=== PATIENT | female | born 1955 | race Hispanic/Latino ===

== ENCOUNTER → 2024-12-12 | Outpatient (CLI) | payer MEDICARE ==
[~2024-12-12] MED LIST: FEXO-402 PO; FLUT16H NS
--- NOTE | 2024-12-24 06:30 | HMCIMG ---
CLINICAL INDICATION: Unspecified menopausal perimenopausal disorder COMPARISON: None available TECHNIQUE: Bone densitometry is performed of the lumbar spine and left hip. FINDINGS: Total BMD of lumbar spine is 0.758 g/cm2 with a T-score of -2.6 and Z-score is -0.6. Total BMD of left hip is 0.88 7 g/cm2 with a T-score of -0.6 and Z-score is 0.8. FRAX SCORE: The 10 year fracture risk for a major osteoporotic fracture and hip fracture not reported due to T score at or below -2.5 IMPRESSION: 1. Osteoporosis of the lumbar spine 2. Normal left hip 3. I would recommend follow-up in 13 months World Health Organization criteria for BMD interpretation classify patients as Normal (T-score at or above -1.0), Osteopenic (T-score between -1.0 and -2.5), or Osteoporotic (T-score at or below -2.5). FRAX SCORE: A. All treatment decisions require clinical judgment and consideration of individual patient factors, including patient preferences, comorbidities, previous drug use, risk factors not captured in the FRAX model (e.g., frailty, falls, vitamin D deficiency, increased bone turnover, interval significant decline in bone density) and possible [id number]-estimation of fracture risk by FRAX. B. In addition, the NOF Guide recommends that FDA-approved medical therapies be considered in postmenopausal women and men age greater than or equal to 50 years with a: i. Hip or vertebral (clinical or morphometric) fracture. ii. T-score of less than or equal to -2.5 at the spine or hip. iii. Ten-year fracture probability by FRAX of greater than or equal to 3% for hip fracture of greater than or equal to 20% for major osteoporotic fracture.
== END | disposition home or self-care (01) ==
LOC: RAH 10:00
PROVIDERS: ATTEND Family Medicine
DX: M81.0 Age-related osteoporosis without current pathological fracture (principal); N95.9 Unspecified menopausal and perimenopausal disorder
CPT/HCPCS: 77080

== ENCOUNTER → 2024-12-25 | Emergency (ER) | payer MEDICARE ==
[~2024-12-25] VITALS: Ht 162.6 cm; Wt 68.5 kg
[2024-12-25 02:14] LABS: IMMATURE GRANULOCYTE ABSOLUTE 0.02 K/uL (0-1); NUCLEATED RED BLOOD CELLS 0.0 % (0.0-0.19); PLATELET COUNT (AUTO) 219 K/uL (130-400); RED BLOOD CELL COUNT(AUTO) 3.94 MIL/uL (4.00-5.50); RED CELL DISTRIBUTION WIDTH 12.8 % (11.0-15.5); WHITE BLOOD COUNT (AUTO) 6.1 K/uL (4.8-10.8)
--- NOTE | 2024-12-25 02:16 | ERN ---
General Chief Complaint: Other Problems Stated Complaint: COUGHING BLOOD Time Seen by MD: 01:58 History of Present Illness Initial Comments 69-year-old female history of hypothyroidism, hyperlipidemia and vitamin-D deficiency here for evaluation of coughing up blood. Patient states that she has been having a sore throat for the past few days and noticed that she was spitting up blood recently. She was concerned and came to the emergency room for evaluation. States that she is coughing right now but has no blood in her c ough. No fever no shortness a breath or palpitation. No chest pain. No vomiting or diarrhea. Allergies: Coded Allergies: No Known Allergies (Unverified Allergy, Unknown, 12/25/24) Past Medical History Past Medical History: High Cholesterol Past Surgical History: Other Surgical History Other: BLADDER Respiratory: (+) cough Physical Exam General Appearance: (+) no apparent distress Orientation: (+) alert, (+) oriented x 3 Eye: bilateral eye normal inspection, bilateral eye PERRL, bilateral eye EOMI Ear, Nose, Throat: (+) hearing grossly normal, (+) normal ENT inspection, (+) moist mucous membraine Neck: (+) normal inspection, (+) supple Respiratory: (+) chest non-tender, (+) lungs clear; (-) decreased breath sounds Heart: (+) regular; (-) murmur Gastrointestinal: (+) soft, (+) non-tender Results Laboratory and Microbiology Lab and Micro Result Laboratory Tests Test 12/25/24 02:02 White Blood Count 6.1 K/uL (4.8-10.8) Red Blood Count 3.94 MIL/uL (4.00-5.50) L Hemoglobin 12.3 g/dL (12.0-16.0) Hematocrit 37.4 % (36-48) Mean Corpuscular Volume 94.9 fL (79-99) Mean Corpuscular Hemoglobin 31.2 pg (27.0-33.0) Mean Corpuscular Hemoglobin Concent 32.9 g/dL (32.0-36.0) Red Cell Distribution Width 12.8 % (11.0-15.5) Platelet Count 219 K/uL (130-400) Mean Platelet Volume 9.9 fL (7.5-10.5) Immature Granulocyte % (Auto) 0.3 % (0-1) Neutrophils (%) (Auto) 66.8 % (40.0-77.0) Lymphocytes (%) (Auto) 20.7 % (21.0-51.0) L Monocytes (%) (Auto) 8.7 % (3.0-13.0) Eosinophils (%) (Auto) 3.0 % (0.0-8.0) Basophils (%) (Auto) 0.5 % (0.0-5.0) Neutrophils # (Auto) 4.1 K/uL (1.8-7.7) Lymphocytes # (Auto) 1.3 K/uL (1.0-4.8) Monocytes # (Auto) 0.5 K/uL (0.1-1.0) Eosinophils # (Auto) 0.18 K/uL (0.00-0.70) Basophils # (Auto) 0.03 K/uL (0.00-0.20) Absolute Immature Granulocyte (auto 0.02 K/uL (0-1) Nucleated Red Blood Cells 0.0 % (0.0-0.19) Prothrombin Time 10.0 SEC (9.6-11.6) Prothromb Time International Ratio 0.94 (0.85-1.15) Activated Partial Thromboplast Time 26.3 SEC (26.3-35.5) Sodium Level 138 mmol/L (136-145) Potassium Level 3.5 mmol/L (3.5-5.1) Chloride Level 104 mmol/L (101-111) Carbon Dioxide Level 28 mmol/L (21-32) Blood Urea Nitrogen 17 mg/dL (7-18) Creatinine 0.8 mg/dL (0.5-1.0) Glomerular Filtration Rate Calc 80 mL/min (>90) Random Glucose 123 mg/dL (70-105) H Total Calcium 8.7 mg/dL (8.5-10.1) MDM 69-year-old female here for evaluation of cough. We will get labs and imaging. Disposition pending results of labs and imaging. ED Course Orders Procedure Category Date Status Time Cbc With Differential LAB 12/25/24 Complete :59 Basic Metabolic Panel LAB 12/25/24 Complete 01:59 Pt And Ptt LAB 12/25/24 Complete :59 Chest 1vw RAD 12/25/24 Resulted 01:59 Vital Signs Date Time Temp Pulse Resp B/P (MAP) Pulse Ox O2 Delivery O2 Flow Rate FiO2 12/25/24 02:16 98.8 75 18 121/66 99 Room Air* 0 21 12/25/24 01:58 97.2 102 20 156/90 97 Room Air DX & DISP Disposition: Discharge Departure Impression: Primary Impression: Cough Condition: Stable Scripts Fexofenadine HCl (Fexofenadine HCl) 180 Mg Tablet 1 TAB PO DAILY for allergy symptoms for 30 Days, #30 TAB 0 Refills Prov: THOMAS NAIDU MD 12/25/24 Fluticasone Propionate (Flonase Nasal [place]) 50 Mcg/Actuation [place] 2 SPRAY NS DAILY for 30 Days, #16 GM 0 Refills Prov: THOMAS NAIDU MD 12/25/24 Referrals: INDIA GARCIA MD (PCP) THOMAS NAIDU MD Dec 25, 2024 02:16
[2024-12-25 02:24] LABS: CREATININE 0.8 mg/dL (0.5-1.0); GLOMERULAR FILTR. RATE CALC 80.0 mL/min (>90); GLUCOSE,RANDOM 123.0 mg/dL (70-105); SODIUM SERUM 138.0 mmol/L (136-145); UREA NITROGEN, BLOOD 17.0 mg/dL (7-18)
[2024-12-25 02:25] LABS: INR 0.94 (0.85-1.15)
--- NOTE | 2024-12-25 03:52 | HMCIMG ---
EXAM: CR Chest, 1 view CLINICAL HISTORY: Hemoptysis. COMPARISON: None provided. FINDINGS: Mild cardiomegaly. Mildly tortuous and atherosclerotic thoracic aorta. Subsegmental atelectasis in the left lung base. Mild COPD. No large pleural effusion or pneumothorax. No acute osseous abnormality. IMPRESSION: Mild cardiomegaly. Mildly tortuous and atherosclerotic thoracic aorta. Subsegmental atelectasis in the left lung base. Mild COPD. /Gate
[2024-12-25 03:59] VITALS: BP 120/62; PULSE 70; RESP 18; TEMP 98.5; O2SAT 98
== END ==
LOC: EDH 01:56
DX: R05.9 Cough, unspecified (principal); J02.9 Acute pharyngitis, unspecified; E78.00 Pure hypercholesterolemia, unspecified; Z79.01 Long term (current) use of anticoagulants
CPT/HCPCS: 36415; 71045; 80048; 85025; 85610; 85730; 99284